=== PATIENT | female | born 1980 | race Two or more races ===

== ENCOUNTER 2017-12-18 16:30 | Observation (INO) | payer MEDICAID ==
[~2017-12-18 16:30] MED LIST: PREN-96 PO
== END 2017-12-18 18:10 | disposition home or self-care (01) | DRG 566 ==
LOC: LDRP 16:30
PROVIDERS: ADMIT Specialist; ATTEND Specialist
DX: O26.892 Other specified pregnancy related conditions, second trimester (principal); M54.9 Dorsalgia, unspecified; R10.32 Left lower quadrant pain; R51 Headache; R42 Dizziness and giddiness; Z3A.25 25 weeks gestation of pregnancy
CPT/HCPCS: 59025; 76815; 81002; G0378